=== PATIENT | female | born 1985 | race Caucasian/White ===

== ENCOUNTER → 2023-07-16 | Outpatient (CLI) | payer OTHER ==
--- NOTE | 2023-07-17 11:45 | CA ---
Exercise Stress Test Report Name: Valentina Juarez Exam Date: 07/16/2023 09:10 Exam Location: [place] Stress Ht (in): 62 Wt (lb): 180 BSA: 1.83 Ordering Phys: Leonel Hart MD Referring Phys: MORALES Technologist: Maico Saravia Age: 37 Gender: F : 1985 Procedure CPT: Indications: R07.9 Chest pain , Z82.49 Fam hx heart dx ICD-10 Codes: Patient History: CHEST PAIN, NUMBNESS IN FACE/NECK, HYPERCHOLESTEROLEMIA, FMAILY HX OF HEART DISEASE, CURRENT SMOKER Medications: Meds past 24 hrs: Pretest Chest Pain: STRESS TEST Bike Ergometer Protocol Exercise Duration (min:sec): 07:[address] Depressions (mm): Angina Score: Zhu Score: Resting HR (bpm): 88 Peak HR (bpm): 162 Resting BP (mmHg): 107 / 68 Peak BP (mmHg): 146 / 54 MPHR: 183 Target HR: 156 % MPHR: 89 METS: 8.6 Total Dose: Peak Dose: Atropine: Double Product: 09037 BP Response: Stress Termination: TARGET HR/MAX EXERTION Stress Symptoms: BRIANDA Stress Summary: ECG ANALYSIS Resting ECG: Stress ECG: CONCLUSIONS Patient underwent exercise stress EKG with a Abdirizak protocol treadmill stress test. Patient exercised into Stage 3 for a total of 7 minutes reaching a total of 8.6 METS. Patient's maximum heart rate was 162 which represented 88 % age-predicted maximum heart rate. Stress EKG findings: At baseline patient's EKG showed normal sinus rhythm, normal axis, no significant ST or T wave abnormalities. At peak exercise, EKG showed significant change from baseline. Conclusions: 1. Normal EKG response to exercise without evidence of inducible ischemia. 2. Fair exercise capacity. Dr. Stone Daniels DO (Electronically Signed) Final Date: 17 July 2023 11:44
== END | disposition home or self-care (01) ==
LOC: MERGE 08:45 → RADNMMAIN 08:46
PROVIDERS: ATTEND Family Medicine
DX: R07.9 Chest pain, unspecified (principal); Z82.49 Family history of ischemic heart disease and other diseases of the circulatory system
CPT/HCPCS: 93017